=== PATIENT | female | born 1950 | race Caucasian/White ===

== ENCOUNTER 2020-07-10 13:14 | Emergency (ER) | payer OTHER, MEDICARE ==
[~2020-07-10] VITALS: Ht 160 cm; Wt 68.5 kg
[2020-07-10 13:15] VITALS: BP_SYST 136
--- NOTE | 2020-07-10 13:15 | NUR ---
BROUGHT BACK TO BED #5 AND TRIAGED. REPORT GIVEN TO LISA
[2020-07-10] MEDS ORDERED: BACITRACIN 1 GM OINT TP ONE (14:00)
[2020-07-10] MEDS ORDERED: LIDOCAINE 1% 10 MG/ML, 20 ML MDV SUBCUT ONE (14:00)
[2020-07-10] MEDS ORDERED: KETOROLAC TROMETHAMINE 60 MG/2 ML VIAL IM ONE (14:00)
[2020-07-10] MEDS ORDERED: DIPH-TET-PERTUS Vaccine 0.5 ML VIAL (ADACEL) I.M. ONE (14:00)
--- NOTE | 2020-07-10 14:14 | NUR ---
Zaheer at bedside completing xray of left hand.
--- NOTE | 2020-07-10 14:30 | NUR ---
Patient came to the ER due to a laceration on left middle finger. Patient advised that she was using a wood saw and accidently cut the tip of her finger. Checked site and wound is not actively bleeding. Patient not in acute distress however complains of aching pain in her finger 6/10. Patient is able to move her fingers.
--- NOTE | 2020-07-10 14:38 | NUR ---
ER at bedside examining patient.
--- NOTE | 2020-07-10 15:11 | NUR ---
DR GONZALEZ AT BEDSIDE PERFORMING SUTURING, PT TOLERATING IT WELL.
[2020-07-10] MEDS ORDERED: LIDOCAINE 1% 10 MG/ML, 20 ML MDV INJ ONE (15:45)
--- NOTE | 2020-07-10 16:45 | NUR ---
Patient given written and verbal discharge instructions and verbalizes understanding. ER MD discussed with patient the results and treatment provided. Patient in stable condition. ID arm band removed. IV catheter removed intact and dressing applied, no active bleeding. Rx of Motrin 600 and [place] 5mg/325 given. Patient educated on pain management and to follow up with PMD. Pain Scale 3. Opportunity for questions provided and answered. Medication side effect fact sheet provided.
[2020-07-10 17:38] VITALS: BP_SYST 136
== END 2020-07-10 16:45 | disposition home or self-care (01) ==
LOC: SED 13:14
DX: S61.211A Laceration without foreign body of left index finger without damage to nail, initial encounter (principal); S61.213A Laceration without foreign body of left middle finger without damage to nail, initial encounter; E07.9 Disorder of thyroid, unspecified; Z90.710 Acquired absence of both cervix and uterus; W26.8XXA Contact with other sharp object(s), not elsewhere classified, initial encounter; Y93.89 Activity, other specified; Y92.89 Other specified places as the place of occurrence of the external cause; Y99.8 Other external cause status
CPT/HCPCS: 12001; 73140; 90471; 90715; 96372; 99284; J1885; J2001